=== PATIENT | male | born 1985 | race American Indian/Alaskan Native ===

== ENCOUNTER 2020-03-17 07:30 | Emergency (ER) | payer SELFPAY ==
[~2020-03-17 07:30] MED LIST: EPINEPHrine 1 MG/10 ML SYRINGE ONE; SODIUM BICARB 8.4% 50 MEQ/50 ML SYRINGE IV ONE
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
== END 2020-03-17 10:25 ==
LOC: ED 07:30
DX: I46.8 Cardiac arrest due to other underlying condition (principal)
CPT/HCPCS: 31500; 32551; 36430; 86850; 86900; 86901; 86920; 99285; J0171; P9016